=== PATIENT | male | born 1950 | race Caucasian/White ===

== ENCOUNTER 2020-03-10 19:20 | Emergency (ER) | payer MEDICARE, OTHER ==
[~2020-03-10] VITALS: Ht 172.7 cm; Wt 92.5 kg
[2020-03-10 19:50] LABS: BASO # 0.1 x10^3/uL (0.0-0.2); BASO % 1 % (0-3); EOS # 0.3 x10^3/uL (0.0-0.7); EOS % 2 % (0-3); HEMATOCRIT 48.9 % (39.0-53.0); HEMOGLOBIN 16.1 g/dL (13.0-17.5); LYMPH # 3.2 x10^3/uL (1.0-4.8); LYMPH % 25 % (24-48); MEAN CORPUSCULAR HEMOGLOBIN 31 pg (25-35); MEAN CORPUSCULAR HGB CONC 33 g/dL (31-37); MEAN CORPUSCULAR VOLUME 95 fL (79-100); MONO # 1.2 x10^3/uL (0.0-1.1); MONO % 10 % (0-9); NEUT # 7.9 x10^3uL (1.8-7.7); NEUT % 62 % (31-73); PLATELET COUNT 231 x10^3/uL (140-400); RED BLOOD COUNT 5.15 x10^6/uL (4.30-5.70); RED CELL DISTRIBUTION WIDTH 14.1 % (11.5-14.5); WHITE BLOOD COUNT 12.7 x10^3/uL (4.0-11.0)
[2020-03-10 19:54] LABS: CALCIUM 9.1 mg/dL (8.5-10.1); CREATININE 1.4 mg/dL (0.7-1.3); GFR 50.5; POTASSIUM 4.1 mmol/L (3.5-5.1)
--- NOTE | 2020-03-10 19:58 | PHYS DOC ---
General Adult EDM: Chief Complaint: CHEST PAIN HPI: HPI: 69-year-old male presents with chest pain. Patient had chest pain starting yesterday. It is right sided just below his breast. It is sharp and stabbing. It is worse with deep breathing and movement. When he woke up this morning the pain was completely gone. Around 5:30 PM, after work he had the pain started again when he was at home. He was concerned and came in for evaluation. When he lays still he has no pain. He continues to have pain with deep breathing or rotating his torso. Patient denies any injuries, falls, or trauma. No history of cardiac problems. He is on no prescription medications. He denies fever ch ills. Review of Systems: Review of Systems: Constitutional: Denies fever or chills Eyes: Denies change in visual acuity HENT: Denies nasal congestion or sore throat Respiratory: Denies cough or shortness of breath Cardiovascular: Chest pain GI: Denies abdominal pain, nausea, vomiting, bloody stools or diarrhea : Denies dysuria Musculoskeletal: Denies back pain or joint pain Integument: Denies rash Neurologic: Denies headache, focal weakness or sensory changes Endocrine: Denies polyuria or polydipsia Lymphatic: Denies swollen glands Psychiatric: Denies depression or anxiety Heart Score: HEART Score for Chest Pain: HEART Score for Chest Pain Response (Comments) Value History Slighlty/Non-Suspicious 0 ECG Normal 0 Age > 65 2 Risk Factors 1 or 2 Risk Factors 1 Troponin < Normal Limit 0 Total 3 Risk Factors: Risk Factors: DM, Current or recent (<one month) smoker, HTN, HLP, family history of CAD, obesity. Risk Scores: Score 0 - 3: 2.5% MACE over next 6 weeks - Discharge Home Score 4 - 6: 20.3% MACE over next 6 weeks - Admit for Clinical Observation Score 7 - 10: 72.7% MACE over next 6 weeks - Early Invasive Strategies Current Medications: Current Meds: Current Medications Medications (Trade) Dose Ordered Sig/Cayla Start Time Stop Time Status Last Admin Dose Admin Aspirin (Aspirin Chewable) 324 mg 1X ONCE 03/10/20 20:15 03/10/20 20:16 03/10/20 19:51 324 MG Allergies: Allergies: Allergies Coded Allergies Type Severity Reaction Last Updated Verified No Known Drug Allergies 03/10/20 No Physical Exam: PE: Constitutional: Well developed, well nourished, no acute distress, non-toxic appearance. [] HENT: Normocephalic, atraumatic, bilateral external ears normal, oropharynx moist, no oral exudates, nose normal. [] Eyes: PERRLA, EOMI, conjunctiva normal, no discharge. [] Neck: Normal range of motion, no tenderness, supple, no stridor. [] Cardiovascular: Heart rate regular rhythm, no murmur [] Lungs & Thorax: Bilateral breath sounds clear to auscultation. Pain with torso rotation and deep breaths. [] Abdomen: Bowel sounds normal, soft, no tenderness, no masses, no pulsatile masses. [] Skin: Warm, dry, no erythema, no rash. [] Back: No tenderness, no CVA tenderness. [] Extremities: No tenderness, no cyanosis, no clubbing, ROM intact, no edema. [] Neurologic: Alert and oriented X 3, normal motor function, normal sensory function, no focal deficits noted. [] Psychologic: Affect normal, judgement normal, mood normal. [] Current Patient Data: Labs: Laboratory Tests Test 03/10/20 19:30 White Blood Count 12.7 x10^3/uL (4.0-11.0) H Red Blood Count 5.15 x10^6/uL (4.30-5.70) Hemoglobin 16.1 g/dL (13.0-17.5) Hematocrit 48.9 % (39.0-53.0) Mean Corpuscular Volume 95 fL (79-100) Mean Corpuscular Hemoglobin 31 pg (25-35) Mean Corpuscular Hemoglobin Concent 33 g/dL (31-37) Red Cell Distribution Width 14.1 % (11.5-14.5) Platelet Count 231 x10^3/uL (140-400) Neutrophils (%) (Auto) 62 % (31-73) Lymphocytes (%) (Auto) 25 % (24-48) Monocytes (%) (Auto) 10 % (0-9) H Eosinophils (%) (Auto) 2 % (0-3) Basophils (%) (Auto) 1 % (0-3) Neutrophils # (Auto) 7.9 x10^3uL (1.8-7.7) H Lymphocytes # (Auto) 3.2 x10^3/uL (1.0-4.8) Monocytes # (Auto) 1.2 x10^3/uL (0.0-1.1) H Eosinophils # (Auto) 0.3 x10^3/uL (0.0-0.7) Basophils # (Auto) 0.1 x10^3/uL (0.0-0.2) EKG: EKG: Sinus rhythm, rate 99, left stevenson axis, no ST elevations or depressions. [] Radiology/Procedures: Radiology/Procedures: [] Impressions: EXAM: AP View of the chest DATE: 03/10/2020 7:35 PM INDICATION: Chest pain COMPARISON: No Prior FINDINGS: The heart is not enlarged. Mediastinal and hilar contours are normal. Patchy opacities medial right lung base likely atelectasis or developing consolidation. Patchy opacities are also seen in the left lung base. No pleural effusion or pneumothorax. IMPRESSION: Patchy opacities medial right lung base likely atelectasis or developing consolidation. Patchy opacities are also seen in the left lung base, also atelectasis or developing consolidation. Of note, atelectasis is favored given the low lung volumes. Electronically signed by: Franco Gilbert MD (03/10/2020 8:06 PM) [facility] DICTATED AND SIGNED BY: FRANCO GILBERT MD DATE: 03/10/202005 CC: PAPITO VALDEZ DO ~ Course & Med Decision Making: Course & Med Decision Making Pertinent Labs and Imaging studies reviewed. (See chart for details) The patient has a white count of 12.7. His other labs are unremarkable. Xray shows atelectasis but cannot rule out early pneumonia. The patient does not have a cough he does not have a fever atelectasis seems most likely at this time. I have advised the patient that this could be something more serious and if he develops a fever he would need antibiotic treatment. His heart score is a 3. His EKG is unremarkable. His troponin is negative. The patient would prefer to go home. I believe this is reasonable. I given him guidance about if his condition worsens to return to the emergency room. He is stated verbal understanding. He is stable for discharge at this time. [] Dragon Disclaimer: Dragon Disclaimer: This electronic medical record was generated, in whole or in part, using a voice recognition dictation system. Departure Departure: Impression: Primary Impression: Chest pain Qualified Codes: R07.9 - Chest pain, unspecified Additional Impression: Atelectasis of both lungs Disposition: HOME/RESIDENCE PRIOR TO ADM Condition: STABLE Patient Instructions: Atelectasis, Chest Pain (Nonspecific), [id number] Justification of Admission: Justification of Admission: Justification of Admission Dx: N/A PAPITO VALDEZ DO Mar 10, 2020 19:58
[2020-03-10 20:06] LABS: ALBUMIN/GLOBULIN RATIO 1.3 (1.0-1.7); TOTAL BILIRUBIN 0.3 mg/dL (0.2-1.0); TOTAL PROTEIN 7.1 g/dL (6.4-8.2)
--- NOTE | 2020-03-10 20:10 | RAD ---
EXAM: AP View of the chest DATE: 03/10/2020 7:35 PM INDICATION: Chest pain COMPARISON: No Prior FINDINGS: The heart is not enlarged. Mediastinal and hilar contours are normal. Patchy opacities medial right lung base likely atelectasis or developing consolidation. Patchy opacities are also seen in the left lung base. No pleural effusion or pneumothorax. IMPRESSION: Patchy opacities medial right lung base likely atelectasis or developing consolidation. Patchy opacities are also seen in the left lung base, also atelectasis or developing consolidation. Of note, atelectasis is favored given the low lung volumes. Electronically signed by: Franco Gilbert MD (03/10/2020 8:06 PM) [facility]
[2020-03-10] MEDS ORDERED: ASPIRIN CHEWABLE 81 MG TABLET. PO ONE (20:15)
--- NOTE | 2020-03-10 21:03 | EKG ---
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
[2020-03-10 21:58] VITALS: BP 140/82
== END 2020-03-10 21:58 | disposition home or self-care (01) ==
LOC: ER 19:20
DX: J98.11 Atelectasis (principal); R07.89 Other chest pain; Z79.899 Other long term (current) drug therapy
CPT/HCPCS: 36415; 71045; 80053; 83880; 84484; 85025; 93005; 99285; G0238

== ENCOUNTER 2020-10-20 00:17 | Observation (INO) | payer MEDICARE, OTHER ==
[~2020-10-20] VITALS: Ht 172.7 cm; Wt 91.3 kg
--- NOTE | 2020-10-20 00:40 | PHYS DOC ---
Past History Past Medical History: No Pertinent History Past Surgical History: No Surgical History Alcohol Use: Heavy General Adult EDM: Chief Complaint: SHORTNESS OF BREATH HPI: HPI: ".. I ve been a little short of breath.. [place] like the flu... I had this dry cough.. . my room mate made me get tested yesterday.. at the Urgent care... they said I had COVID pneumonia.. he was worried tonight because .. I seemed more short of breath.. and he made me come.. I do get really fatigued.. Weak and short of breath when I just walk across the room.. ".." Sweating a lot.. My heart seems to be fast if I do anything..." Patient is a 70 year old male who presents with above hx. of myalgia, malaise and dyspnea. Patient diagnosed yesterday with Covid pneumonia the local urgent care. Patient states if he stays seated does not move around he does not get dyspneic, but with any activity he gets short of breath. Patient denies any past significant medical issues. No history of coronary artery disease, CHF, A. fib, bronchitis, or COPD. Patient denies any history of coagulopathy or pulmonary embolisms. Patient states he is generally healthy. Patient states his only been ill the last couple days. Patient denies any recent travel outside [facility]. Patient's roommate is not sick. Pt. dose not follow with a primary care. Denies history of immunosuppression. Patient denies tobacco or drug use. Patient denies excessive alcohol use. Review of Systems: Review of Systems: Constitutional: Subjective history of fever or chills Eyes: Denies change in visual acuity HENT: Denies nasal congestion or sore throat Respiratory: Complains of a nonproductive cough and shortness of breath Cardiovascular: Denies chest pain or edema GI: Denies abdominal pain, nausea, vomiting, bloody stools or diarrhea : Denies dysuria Musculoskeletal: Complains of some generalized myalgia and arthralgia, fatigue and weakness Integument: Denies rash Neurologic: Denies headache, focal weakness or sensory changes Endocrine: Denies polyuria or polydipsia Lymphatic: Denies swollen glands Psychiatric: Denies depression or anxiety Family History: Family History: Noncontributory to presentation Current Medications: Current Meds: See nursing for home meds Allergies: Allergies: Allergies Coded Allergies Type Severity Reaction Last Updated Verified No Known Drug Allergies 03/10/20 No Physical Exam: PE: Constitutional: Moderately acute distress, ill in appearance. [] HENT: Normocephalic, atraumatic, bilateral external ears normal, oropharynx moist, no oral exudates, nose slightly swollen turbinates and clear rhinorrhea Eyes: PERRLA, EOMI, conjunctiva normal, no discharge. [] Neck: Normal range of motion, no tenderness, supple, no stridor. [] Cardiovascular: Tachycardia heart rate regular rhythm, no murmur [. The bedside monitor shows tachycardia.. 120- 130.. with pt. standing and walking in place rates into 150-160's Lungs & Thorax: Bilateral breath sounds equal apex with some scattered wheezes and basilar crackles on auscultation []. Bed side pulse ox- 88%, but decreased 70% with pt. standing and walking in place. Abdomen: Bowel sounds normal, soft, no tenderness, no masses, no pulsatile masses. Midline hernia. Obese Skin: Warm, diaphoretic, no erythema, no rash. [] Back: No tenderness, no CVA tenderness. [] Extremities: No tenderness, no cyanosis, no clubbing, ROM intact, no edema. No cording appreciated. Neurologic: Alert and oriented X 3, moves all extremities on request, does have distal sensory, no gross focal deficits noted. [] Psychologic: Affect normal, judgement normal, mood normal. [] EKG: EKG: My interpretation EKG shows a sinus tachycardia at 122 bpm. Does have a regular rhythm. Does have bimodal P waves. Does have leftward axis. There are short segments appear to be A. fib like. Rhythm is irregular. Radiology/Procedures: Radiology/Procedures: [][address] [place] [id number] IMAGING REPORT Signed PATIENT: ANA PAULA MCKAY ACCOUNT: [id number] : 1950 LOCATION: ER AGE: 70 SEX: M EXAM STATUS: PRE ER ORD. PHYSICIAN: LESLY DOS SANTOS MD REASON: COVID, HYPOXIA PROCEDURE: PORTABLE CHEST 1V AP chest x-ray HISTORY: Covid positive infection, hypoxia. COMPARISON: Chest x-ray March 10, 2020. FINDINGS: Heart size normal. Mediastinal silhouette is normal. No pneumothorax. No pleural effusions. There is prominence of the pulmonary vasculature, mass or congestion is not excluded. No pulmonary opacities or interstitial thickening evident. Bones are unremarkable. IMPRESSION: Prominence of the pulmonary vasculature could indicate mild pulmonary vascular congestion. No pulmonary edema or infiltrates evident. No pleural effusions. Electronically signed by: Noah Esteban MD (10/20/2020 1:15 AM) [facility] DICTATED AND SIGNED BY: NOAH ESTEBAN MD DATE: 10/20/20112 CC: LESLY DOS SANTOS MD; PCP,NO ~MTH0 0 Heart Score: HEART Score for Chest Pain: HEART Score for Chest Pain Response (Comments) Value History Moderately Suspicious 1 ECG Nonspecific Repolarizatio 1 Age > 65 2 Risk Factors 1 or 2 Risk Factors 1 Troponin < Normal Limit 0 Total 5 Risk Factors: Risk Factors: DM, Current or recent (<one month) smoker, HTN, HLP, family history of CAD, obesity. Risk Scores: Score 0 - 3: 2.5% MACE over next 6 weeks - Discharge Home Score 4 - 6: 20.3% MACE over next 6 weeks - Admit for Clinical Observation Score 7 - 10: 72.7% MACE over next 6 weeks - Early Invasive Strategies Course & Med Decision Making: Course & Med Decision Making Pertinent Labs and Imaging studies reviewed. (See chart for details) Discussed presentation, testing and treatment plan with Dr. Crawford. Agreed to accept pt. to his service. Requested pt. get 6 mg of Decadron and a 60 mg of Lasix IV before admission to [facility] bed.. Impression: 1. COVID +- 10/19/2020 Test 2. Respiratory Failure- Hypoxia 3. Elevated D-dimer 1.91 4. Hyponatremia 128 5. Elevated BUN 29 6. Elevated Lipase 1008 7. Elevated CRP 69.5 [] Navid Disclaimer: Navid Disclaimer: This electronic medical record was generated, in whole or in part, using a voice recognition dictation system. Departure Departure: Referrals: PCP,ANIYA (PCP) Navid Disclaimer This chart was dictated in whole or in part using Voice Recognition software in a busy, high-work load, and often noisy Emergency Department environment. It may contain unintended and wholly unrecognized errors or omissions. Dragon Disclaimer This chart was dictated in whole or in part using Voice Recognition software in a busy, high-work load, and often noisy Emergency Department environment. It may contain unintended and wholly unrecognized errors or omissions. LESLY DOS SANTOS MD Oct 20, 2020 00:40
[2020-10-20] MEDS ORDERED: AZITHROMYCIN 250 MG TABLET. PO ONE (00:45)
[2020-10-20] MEDS ORDERED: ASPIRIN CHEWABLE 81 MG TABLET. PO ONE (00:45)
[2020-10-20] MEDS ORDERED: ALBUTEROL SULFATE 8GM INHALER. INH ONE (01:00)
[2020-10-20] MEDS ORDERED: ACETAMINOPHEN 500 MG TABLET PO ONE (01:00)
[2020-10-20] MEDS ORDERED: IV RINGERS SOLUTION,LACTATED 1,000 ML IV SCH (01:00)
[2020-10-20] MEDS ORDERED: methylPREDNISolone SOD SUCC PF 125 MG/2 ML VIAL. IV ONE (01:00)
[2020-10-20] MEDS ORDERED: APIXABAN 2.5 MG TABLET ONE (01:03)
[2020-10-20] MEDS ORDERED: APIXABAN 2.5 MG TABLET PO ONE (01:13)
--- NOTE | 2020-10-20 01:18 | RAD ---
AP chest x-ray HISTORY: Covid positive infection, hypoxia. COMPARISON: Chest x-ray March 10, 2020. FINDINGS: Heart size normal. Mediastinal silhouette is normal. No pneumothorax. No pleural effusions. There is prominence of the pulmonary vasculature, mass or congestion is not excluded. No pulmonary o pacities or interstitial thickening evident. Bones are unremarkable. IMPRESSION: Prominence of the pulmonary vasculature could indicate mild pulmonary vascular congestion . No pulmonary edema or infiltrates evident. No pleural effusions. Electronically signed by: Tom Esteban MD (10/20/2020 1:15 AM) [facility]
[2020-10-20 01:52] LABS: BGAS PH 7.46 (7.35-7.46)
[2020-10-20 02:07] LABS: BASO % 0 % (0-3); EOS % 0 % (0-3); HEMATOCRIT 48.1 % (39.0-53.0); HEMOGLOBIN 16.2 g/dL (13.0-17.5); LYMPH # 0.5 x10^3/uL (1.0-4.8); LYMPH % 9 % (24-48); MEAN CORPUSCULAR HEMOGLOBIN 31 pg (25-35); MEAN CORPUSCULAR HGB CONC 34 g/dL (31-37); MEAN CORPUSCULAR VOLUME 93 fL (79-100); MONO # 0.5 x10^3/uL (0.0-1.1); MONO % 9 % (0-9); NEUT # 4.4 x10^3uL (1.8-7.7); NEUT % 82 % (31-73); PLATELET COUNT 148 x10^3/uL (140-400); RED CELL DISTRIBUTION WIDTH 13.9 % (11.5-14.5); WHITE BLOOD COUNT 5.3 x10^3/uL (4.0-11.0)
[2020-10-20 02:21] LABS: CALCIUM 8.2 mg/dL (8.5-10.1); CREATININE 1.3 mg/dL (0.7-1.3); GFR 54.9
--- NOTE | 2020-10-20 02:31 | EKG ---
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
[2020-10-20 02:42] LABS: ALBUMIN 3.1 g/dL (3.4-5.0); C REACTIVE PROTEIN 69.5 mg/L (0-3.3); DIRECT BILIRUBIN 0.2 mg/dL (0.0-0.2); MAGNESIUM 2.3 mg/dL (1.8-2.4); TOTAL BILIRUBIN 0.5 mg/dL (0.2-1.0); TOTAL PROTEIN 6.7 g/dL (6.4-8.2)
[2020-10-20] MEDS ORDERED: ACETAMINOPHEN 325 MG TABLET PO PRN (04:45)
[2020-10-20] MEDS ORDERED: ONDANSETRON PF 4 MG/2 ML VIAL. IVP PRN (04:45)
[2020-10-20] MEDS ORDERED: DEXAMETHASONE 4 MG TABLET PO ONE (04:45)
[2020-10-20] MEDS ORDERED: FUROSEMIDE 40 MG/4 ML VIAL IVP ONE (04:45)
[2020-10-20 06:24] VITALS: BP 118/88
--- NOTE | 2020-10-20 06:30 | NUR ---
Pt admitted to 123 via EMS accompanied by nursing vat house supervisor. Pt ambulated from gurney to bed independently. VS obtained. Pt has no complaints of pain or SOA. Pt is AOX4. Pt denies any past medical history. POC discussed w/ verbal understanding. Call light in reach. Will continue to monitor.
[2020-10-20 07:05] LABS: BARBITURATES NEG (NEG); BENZODIAZEPINES NEG (NEG); CANNABINOIDS NEG (NEG); COCAINE NEG (NEG); METHADONE NEG (NEG); OPIATES NEG (NEG); PHENCYCLIDINE NEG (NEG)
[2020-10-20 07:10] LABS: AMPHETAMINE/METHAMPHETAMINE NEG (NEG)
[2020-10-20 07:47] LABS: BACTERIA,URINE 0 /HPF (0-FEW); BILIRUBIN,URINE NEG (NEG); CLARITY,URINE CLEAR; COLOR,URINE STRAW; GLUCOSE,URINE NEG (NEG); NITRITE,URINE NEG (NEG); RBC,URINE OCC /HPF (0-2); SQUAMOUS EPITHELIAL CELL,UR OCC /LPF; UROBILINOGEN,URINE 0.2 mg/dL (0.2 mg/dL); WBC,URINE OCC /HPF (0-4)
[2020-10-20] MEDS ORDERED: IPRATRPIUM/ALBUTEROL 0.5/2.5MG 3 ML NEBU. NEB SCH (08:00)
[2020-10-20] MEDS ORDERED: ALBUTEROL SULFATE 8GM INHALER. INH SCH (09:00)
[2020-10-20] MEDS ORDERED: APIXABAN 2.5 MG TABLET PO SCH (09:00)
--- NOTE | 2020-10-20 10:07 | NUR ---
PATIENT IS 2L OF O2 WITH SAT 92%, PATIENT IS COVID POSITIVE. DR. PHILLIPS REQUESTED TO RECHECK PATIENT'S O2 ON RA VS SUPPLEMENTAL O2. PATIENT IS ON RA WITH SAT 87% AND SOB. DR. PHILLIPS NOTIFIED. DR. PHILLIPS STATED HE WILL DISCHARGE PATIENT HOME WITH SUPPLEMENTAL O2 .
--- NOTE | 2020-10-20 10:25 | HP ---
ADMIT DATE: 10/20/2020 ATTENDING PHYSICIAN: Dr. Phillips. CHIEF COMPLAINT: "I'm a little short of breath." HISTORY OF PRESENT ILLNESS: The patient is a 70-year-old gentleman who lives with his roommate same sex partner. The roommate had a positive swab for COVID. He also had a positive swab several days ago. He has some myalgia, malaise, dyspnea, urgent care diagnosis of COVID activity in our ED. He had a chest x-ray showed minimal opacity at the bases with atypical pneumonia. He had marginal saturations. He was not clinically short of breath. He was admitted for further evaluation and observation. There is no history of chronic obstructive pulmonary disease. He is a nonsmoker. No recent travel. He does not have a primary care physician. There is no immunocompromised. No drug or alcohol use. He has no prescription meds. ALLERGIES: He has no known drug allergies. PAST MEDICAL HISTORY: Unremarkable for any chronic illnesses. ALLERGIES: He has no known drug allergies. CURRENT MEDICATIONS: Reviewed. He was given albuterol, one dose of Eliquis and lactated Ringer's along with some Tylenol. He has no prescription meds. FAMILY HISTORY: Mom of complications of heart disease at age 80. Father of colorectal cancer at age 76. He has never been . He has the same sex partner. He does not have any children. REVIEW OF SYSTEMS: Unremarkable for any recent travel, fevers or chills. 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 All other systems reviewed and turned to be negative. PHYSICAL EXAMINATION: GENERAL: When I saw him, this is a pleasant, middle-aged gentleman. INITIAL VITAL SIGNS: Showed temperature 95.3 degrees Fahrenheit, blood pressure is 118/88, pulse 71 and regular, oxygen saturation 96% on 2 liters nasal cannula. HEENT: Head is without trauma. Pupils are reactive. Sclerae nonicteric. Oropharynx is clear. NECK: Supple, no bruits. LUNGS: Minimal rhonchi at the bases. No wheezing. CARDIOVASCULAR: Showed regular heart tones. No gallops. ABDOMEN: Soft, no guarding, rebound tenderness. EXTREMITIES: Without edema. NEUROLOGIC: Focally intact. SKIN: Warm and dry. PERTINENT LABORATORY STUDIES: Hemoglobin 16.2 g/dL, white count 5300. Sodium slightly diminished at 128, potassium 5.0 mEq, nonfasting blood sugar 115, creatinine is 1.3 mg/dL. Cardiac enzymes negative for coronary ischemia. Lipase is slightly elevated at 1000. No other symptoms. Transaminases unremarkable. Bilirubin is normal. ASSESSMENT: 1. A 70-year-old gentleman with mild atypical COVID infection, questionable infiltrates at bases. 2. Marginal oxygen saturation. PLAN: 1. Observation status. 2. We will try to wean down supplemental oxygen. 3. Decadron has been ordered. 4. Diet as tolerated. He will be on observation status. SEBASTIÁN PHILLIPS MD DR: ALPHONSE/neva JOB#: [id number] / [id number]
[2020-10-20 11:02] VITALS: BP 108/77
--- NOTE | 2020-10-20 13:10 | DS ---
DATE OF DISCHARGE: 10/20/2020 ATTENDING PHYSICIAN: Dr. Phillips. FINAL DISCHARGE DIAGNOSES: 1. Atypical pneumonia. 2. COVID-19 coronavirus infection. 3. Myalgia. 4. Marginal oxygen saturation. HISTORY AND PHYSICAL: The patient is a 70-year-old gentleman, fairly active. 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 His partner or roommate came down with coronavirus. He has had a positive swab 3 days ago. He has had some mild shortness of breath, but really did not want to come in the Emergency Room. He was evaluated and had a chest x-ray done this morning, which showed minimal infiltrates at the bases. His gases were marginal. He was admitted for observation and further treatment and evaluation. PHYSICAL EXAMINATION: Please see the dictated note. PERTINENT LABORATORY AND X-RAY STUDIES: Arterial blood gases on room air showed a pH of 7.46, pCO2 of 28 mmHg and a pO2 of 59 mmHg. Electrolytes showed a slightly diminished sodium 128 mEq, creatinine was 1.3 milligram percent. Hemoglobin 16.2 gram, white count 5300. Chest x-ray in the ED showed evidence of prominence of pulmonary vasculature; no acute infiltrates identified, no pleural effusion. COURSE IN THE HOSPITAL: The patient was admitted with a tentative COVID-19 early pneumonia and marginal hypoxemia. Supplemental oxygen was administered along with corticosteroids. He did well. He had a minimal dry and nonproductive cough and was feeling better. We tried to wean him down, but his oxygen saturation declined to 88% on room air. Arrangements were then made for home oxygen delivery at 2 liters by nasal cannula. He wanted to go home. I felt this is reasonable. I felt he was stable without any impending respiratory failure; therefore, I wrote a script for prednisone 60 mg p.o. daily for 7 days and stop. Supplemental oxygen 2 liters by nasal cannula to be delivered to his house. He is still on quarantine from work given his positive COVID status. I recommended he find a followup visit with a PCP locally. He was discharged then from our hospital in stable condition with explicit instructions and followup care. SEBASTIÁN PHILLIPS MD DR: ALPHONSE/neva JOB#: [id number] / [id number]
--- NOTE | 2020-10-20 14:53 | NUR ---
PATIENT IS DISCHARGED HOME WITH SUPPLEMENTAL O2. DISCHARGE INSTRUCTION REVIEWED, PATIENT VERBALIZED UNDERSTANDING. PATIENT LEFT ROOM 123 VIA W/C ACCOMP BY STAFF. PATIENT TAKEN HOME BY PARTNER VIA PERSONAL VEHICLE.
== END 2020-10-20 14:45 | disposition home or self-care (01) ==
LOC: ER 00:17 → 1 SOUTH 04:30
PROVIDERS: ADMIT Hospitalist; ATTEND Hospitalist
DX: U07.1 COVID-19 (principal); J96.91 Respiratory failure, unspecified with hypoxia; J12.82 Pneumonia due to coronavirus disease 2019; E87.1 Hypo-osmolality and hyponatremia; M79.10 Myalgia, unspecified site; R74.8 Abnormal levels of other serum enzymes; Z79.899 Other long term (current) drug therapy
CPT/HCPCS: 36415; 36600; 71045; 80048; 80076; 80307; 81001; 82550; 82803; 83605; 83690; 83735; 83880; 84443; 84484; 85025; 85379; 85610; 85730; 86140; 87040; 93005; 94640; 96374; 96375; 99285; G0238; G0378; J1940; J2930; J7120; J8540; G0379; 94664